=== PATIENT | male | born 1940 | race Caucasian/White ===

== ENCOUNTER 2021-08-11 11:34 | Emergency (ER) | payer MEDICARE, BC ==
[~2021-08-11] VITALS: Ht 177.8 cm; Wt 90.0 kg
--- NOTE | 2021-08-11 11:57 | NUR ---
PT ESCORTED TO ROOM 4 FOUR EVALUATION OF JAW SWELLING AND ENTAL PAIN. PT ATTEMPTED TO SEE DENTIST BUT NO APPT AVAILABLE
[2021-08-11] MEDS ORDERED: NORVASC10 M1 PO (12:01)
[2021-08-11] MEDS ORDERED: HYDROCHLOROT25 MG PO (12:02)
[2021-08-11] MEDS ORDERED: SYNTHROID112 MCG PO (12:02)
[2021-08-11] MEDS ORDERED: ASPIRIN81 MG PO (12:02)
[2021-08-11] MEDS ORDERED: METFORMIN HCL500 M1 PO (12:03)
[2021-08-11] MEDS ORDERED: PRAVSTATIN SODI10 MG PO (12:03)
[2021-08-11] MEDS ORDERED: FINASTERIDE5 MG PO (12:03)
[2021-08-11] MEDS ORDERED: IPRATROPIU0.5 MG/3 M IN (12:04)
[2021-08-11] MEDS ORDERED: LOSARTAN POTAS100 MG PO (12:04)
[2021-08-11] MEDS ORDERED: TRAMADOL HCL50 MG PO (12:04)
[2021-08-11] MEDS ORDERED: TAMSULOSIN HCL0.4 MG PO (12:04)
[2021-08-11] MEDS ORDERED: MONTELUKAST SOD10 MG PO (12:05)
[2021-08-11] MEDS ORDERED: FLONASE SE27.5 MCG/S (12:05)
[2021-08-11] MEDS ORDERED: PROTONIX40 M2 PO (12:05)
[2021-08-11] MEDS ORDERED: CLARITIN5 MG PO (12:05)
[2021-08-11] MEDS ORDERED: AZELASTINE0.05 % XX (12:06)
[2021-08-11] MEDS ORDERED: ACETAMIN500 M2 PO (12:06)
[2021-08-11] MEDS ORDERED: MELATONIN PO (12:07)
[2021-08-11] MEDS ORDERED: CLOPIDOGREL75 MG PO (12:07)
[2021-08-11] MEDS ORDERED: NITRO-DUR0.4 MG/HR TD (12:08)
--- NOTE | 2021-08-11 12:18 | NUR ---
AT BEDSIDE TO HE[facility] POTTER
[2021-08-11] MEDS ORDERED: CLINDAMYCIN300 M1 PO (12:19)
[2021-08-11 12:40] VITALS: BP 135/76
--- NOTE | 2021-08-11 12:45 | NUR ---
D/C instructions given with verbalization of understanding. Pt. discharged home in stable condition.
== END 2021-08-11 12:45 | disposition home or self-care (01) ==
LOC: ED 11:34 → ICU 12:24 → ED 12:24
DX: K08.89 Other specified disorders of teeth and supporting structures (principal); I10 Essential (primary) hypertension; E11.9 Type 2 diabetes mellitus without complications; Z95.2 Presence of prosthetic heart valve; Z79.84 Long term (current) use of oral hypoglycemic drugs

== ENCOUNTER 2021-10-24 06:27 | Emergency (ER) | payer MEDICARE, BC ==
[~2021-10-24] VITALS: Ht 177.8 cm; Wt 93.0 kg
[~2021-10-24 06:27] MED LIST: ACETAMIN500 M2 PO; ASPIRIN81 MG PO; AZELASTINE0.05 % XX; CLARITIN5 MG PO; CLINDAMYCIN300 M1 PO; CLOPIDOGREL75 MG PO; FINASTERIDE5 MG PO; FLONASE SE27.5 MCG/S; HYDROCHLOROT25 MG PO; IPRATROPIU0.5 MG/3 M IN; LOSARTAN POTAS100 MG PO; MELATONIN PO; METFORMIN HCL500 M1 PO; MONTELUKAST SOD10 MG PO; NITRO-DUR0.4 MG/HR TD; NORVASC10 M1 PO; PRAVSTATIN SODI10 MG PO; PROTONIX40 M2 PO; SYNTHROID112 MCG PO; TAMSULOSIN HCL0.4 MG PO; TRAMADOL HCL50 MG PO
[2021-10-24 06:34] VITALS: BP 174/83
[2021-10-24 06:47] VITALS: BP 141/68
[2021-10-24 07:00] VITALS: BP 133/63
[2021-10-24 08:00] VITALS: BP 138/59
[2021-10-24 08:02] LABS: URINE BILIRUBIN - DIPSTICK NEGATIVE (NEGATIVE); URINE BLOOD DIPSTICK LARGE (NEGATIVE); URINE COLOR YELLOW; URINE GLUCOSE - DIPSTICK NEGATIVE (NEGATIVE); URINE LEUK ESTERASE NEGATIVE (NEGATIVE); URINE PROTEIN - DIPSTICK TRACE mg/dL (NEG-TRACE); URINE UROBILINOGEN - DIPSTICK 0.2 E.U./dL (0.2)
[2021-10-24 08:05] LABS: URINE NITRITE - DIPSTICK NEGATIVE (Negative)
[2021-10-24 08:05] LABS: HEMATOCRIT 36.4 % (39.0-50.0); IMMATURE GRANULOCYTES 0.3 % (0.0-5.0); MEAN CELL VOLUME 98.1 fL CALC (80.0-100.0); MEAN CORPUSCULAR HGB 32.3 pG CALC (26.0-32.0); NEUT# 9.89 thou/uL (1.82-7.42); RED BLOOD COUNT 3.71 mill/uL (4.70-6.10); RED CELL DISTRI WIDTH 12.6 % (11.5-15.5)
[2021-10-24 08:11] LABS: URINE KETONE Negative (NEGATIVE)
[2021-10-24 08:16] LABS: URINE WBC 0-2 WBC/hpf (0-5)
[2021-10-24 08:27] LABS: ALBUMIN 3.8 g/dL (3.2-5.0); ALKALINE PHOSPHATASE 57 u/l (38-126); ANION GAP 9 (6-22 (CALC)); BILIRUBIN, TOTAL 0.4 mg/dL (0.0-1.4); BUN 22 mg/dL (8-23); BUN/CREATININE RATIO 24 (12-20 (CALC)); CARBON DIOXIDE 27 mmol/l (22-30); CHLORIDE 106 mmol/l (95-108); CREATININE 0.9 mg/dL (0.7-1.3); GFR > 60 ML/MIN (>=60 (CALC)); GFR FOR AFR.AMER. > 60 ML/MIN (>=60 (CALC)); POTASSIUM 4.1 mmol/l (3.5-5.1); SODIUM 137 mmol/l (137-146); TOTAL PROTEIN 6.7 g/dL (6.3-8.2)
[2021-10-24 08:28] LABS: SGOT/AST 65 u/l (19-48)
[2021-10-24 08:30] VITALS: BP 131/61
[2021-10-24 09:00] VITALS: BP 138/71
== END 2021-10-24 09:10 | disposition home or self-care (01) ==
LOC: ED 06:27
PROVIDERS: Emergency Medicine
DX: H53.8 Other visual disturbances (principal); I10 Essential (primary) hypertension; Z95.2 Presence of prosthetic heart valve

== ENCOUNTER 2023-02-08 15:01 | Emergency (ER) | payer MEDICARE, BC ==
[~2023-02-08] VITALS: Ht 177.8 cm; Wt 95.0 kg
[2023-02-08 18:05] VITALS: BP 151/67
[2023-02-08 18:15] VITALS: BP 136/66
[2023-02-08] MEDS ORDERED: MUPIROCIN2 % EX (18:25)
[2023-02-08 18:30] VITALS: BP 132/60
[2023-02-08 18:46] VITALS: BP 137/63
== END 2023-02-08 18:58 | disposition home or self-care (01) ==
LOC: ED 15:01
DX: S81.811D Laceration without foreign body, right lower leg, subsequent encounter (principal); I10 Essential (primary) hypertension; W22.09XD Striking against other stationary object, subsequent encounter; Z95.2 Presence of prosthetic heart valve